=== PATIENT | female | born 1995 | race Caucasian/White ===

== ENCOUNTER 2019-11-29 19:20 | Emergency (ER) | payer OTHER, SELFPAY ==
[2019-11-29 19:44] VITALS: BP 123/89; PULSE 90; RESP 17; TEMP 36.7; O2SAT 100
--- NOTE | 2019-11-29 19:55 | ECG_ITS ---
Measurements Intervals [place] Rate: 71 P: 45 DC: 145 QRS: 59 QRSD: 92 T: 39 QT: 374 QTc: 408 SINUS RHYTHM LOW QRS VOLTAGE IN PRECORDIAL LEADS [QRS DEFLECTION < 1.0 mV IN CHEST LEADS] No previous ECG available for comparison Electronically Signed On 11-30-2019 8:55:59 CDT by Sho Rosado M.D. [email or web address]
--- NOTE | 2019-11-29 19:57 | W.ED.DIZZY ---
HPI - Dizziness General: Chief Complaint: Dizziness Stated Complaint: dizzy/shakey Time Seen by Provider: 11/29/19 19:44 History of Present Illness: HPI Narrative: Patient is a 24-year-old female who comes to the ED with anxiety and nausea. Patient states that symptoms started a couple hours ago. Patient states she has been working 16-hour days at her job and today she drink half of an energy drink and took a caffeine pill. Patient noticed the symptoms started about 30 to 40 minutes after she took her caffeine pill. She started getting a little dizzy, nauseous, anxious and shaky. She has had a couple episodes of emesis. Here in the ED she says her dizziness is gone away but she still feels nauseous and very anxious. She describes having shaky feeling in her hands and feet. Denies any fever, chest pain, shortness of breath, abdominal pain, headache, recent head trauma, numbness or weakness to extremities or any other neurological symptoms. Patient does state that she has had some burning and increased urine frequency over the past 2 days. Patient denies possibility of being . Associated symptoms: Reports nausea and vomiting; Denies chest pain, chills, headache(s), nasal congestion or palpitations Associated neuro symptoms: Deny numbness in extremities Review of Systems Const: Denies: fever, chills or fatigue Eyes: Denies: change in vision or eye discomfort ENMT: Denies: throat pain, painful swallowing, nasal discharge or nasal congestion Card: Denies: chest pain, palpitations, edema, swelling of feet/ankles, shortness of breath on exertion or shortness of breath when lying down Resp: Denies: shortness of breath, productive cough or non-productive cough GI: Reports: nausea and vomiting; Denies: abdominal pain, diarrhea, constipation or blood in stool : Reports: painful urination and urinary urgency; Denies: flank pain or blood in urine Musc: Denies: neck pain, back pain or extremity swelling Skin/Breast: Denies: rash or new lesion Neuro: Reports: dizziness (Resolved before arriving to ED); Denies: headache, numbness in extremities or weakness in extremities Psych: Reports: anxiety PFSH ED PFSH: Social History Smoking and tobacco status: never smoked Female Reproductive History: Date of last menstrual period: 11/29/19 Physical Exam Narrative: EXAM NARRATIVE: Patient is a 24-year-old female who is sitting on the exam bed when I enter the room. She appears little emotional and anxious during history and physical exam. She is showing no signs of acute pain or any acute respiratory distress. Const: COMMON NORMALS: oriented x3 and alert GENERAL APPEARANCE: cooperative and anxious HENMT: COMMON NORMALS: normocephalic HEAD & SCALP: normocephalic MOUTH: oral and palatal mucosa normal THROAT: posterior oropharynx normal and uvula midline Eye: COMMON NORMALS: PERRL, EOMs intact bilaterally and normal visual cazares by confrontation PUPIL: Yes PERRL Neck/C-Spine: COMMON NORMALS: supple GENERAL: Yes normal visual inspection Resp: COMMON NORMALS: normal respiratory effort, no retractions, no use of accessory muscles and clear to auscultation bilaterally AUSCULTATION: clear to auscultation bilaterally Cardio: COMMON NORMALS: regular rate, regular rhythm, S1 normal heart sound, S2 normal heart sound, no gallops, no clicks, no murmurs and peripheral pulses 2+ throughout RATE: regular rate RHYTHM: regular rhythm HEART SOUNDS: S1 normal and S2 normal PERIPHERAL PULSES: pulses 2+ throughout GI: COMMON NORMALS: normal to inspection, nondistended, normoactive bowel sounds, soft to palpation, non-tender and no masses PALPATION: Yes soft : COMMON NORMALS: Yes no CVA tenderness BLADDER/KIDNEY EXAM: Yes no CVA tenderness Back/Pelvis: COMMON NORMALS: no CVA tenderness Extremity: COMMON NORMALS: normal to inspection and normal capillary refill Neuro: COMMON NORMALS: oriented x3, CN's II-XII intact bilaterally, moves all extremities, no focal motor deficits and no sensory deficits noted SENSORIUM/ORIENTATION: Yes alert SENSORY EXAM: Yes extremities (intact) MOTOR EXAM: strength 5/5 throughout Skin: COMMON NORMALS: no rashes or lesions noted GENERAL SKIN EXAM: no rashes or lesions noted and dry skin Course Vital Signs: Vital signs: Vital Signs Temperature 98.1 F 11/29/19 19:44 Pulse Rate 72 11/29/19 21:57 Respiratory Rate 14 11/29/19 21:57 Blood Pressure 122/75 11/29/19 21:57 Pulse Oximetry 99 11/29/19 21:57 MDM - Dizziness MDM Narrative: Medical decision making narrative: Patient is a 24-year-old female who comes to the ED with anxiety, restlessness, shakes and nausea after taking an energy drink and a caffeine pill today. Patient also complaining of dysuria and frequency. EKG showed normal sinus rhythm. CBC and CMP were unremarkable. Urinalysis showed some bacteria, white blood cells and red blood cells. Patient was given IV fluids, zofran and hydroxyzine to help with anxiety. Patient symptoms improved while here in the ED. Patient was discharged and told to limit caffeine intake and to take full course of antibiotics as prescribed. Told her to follow-up with her PCP in 7 days for reevaluation. Patient understood and agrees with plan. Lab Data: Attestation: I reviewed the patient's lab results. Labs: Lab Results 11/29/19 11/29/19 11/29/19 Range/Units 20:01 20:01 20:01 WBC 8.1 (4.0-10.0) 10^3/ uL RBC 4.29 (4.1-5.3) 10^6/u L Hgb 13.4 (11.5-15.3) g/dL Hct 40.8 (37.0-47.0) % MCV 95.1 (81-99) fL MCH 31.2 (28.0-34.0) pg MCHC 32.8 (30.0-36.0) g/dL RDW 12.3 (12.1-15.1) % Plt Count 223 (130-400) 10^3/c mm MPV 11.2 H (7.4-10.4) fL Neut % (Auto) 68.9 % Lymph % (Auto) 23.5 % [place] % (Auto) 6.3 % Eos % (Auto) 0.5 % Baso % (Auto) 0.6 % Neut # (Auto) 5.6 (1.8-7.7) 10^3/u L Lymph # (Auto) 1.9 (0.8-4.8) 10^3/u L [place] # (Auto) 0.5 (0.2-0.9) 10^3/u L Eos # (Auto) 0.0 (0.0-0.8) 10^3/u L Baso # (Auto) 0.1 (0.0-0.1) 10^3/u L Nucleated RBC % (a uto) 0 % Nucleated RBCs # 0.0 /100WBC Sodium 139 (136-145) mmol/L Potassium 3.9 (3.5-5.1) mmol/L Chloride 102 (98-107) mmol/L Carbon Dioxide 23 (22-29) mmol/L Anion Gap 17.9 (5-19) BUN 12 (6-20) mg/dL Creatinine 0.8 (0.5-0.9) mg/dL GFR Calculation 89.7 L (90-130) mL/min Glucose 122 H (65-115) mg/dL Calculated Osmolal ity 285 (285-295) mOsm/k g Calcium 9.9 (8.5-10.5) mg/dL Total Bilirubin 0.5 (0.15-1.2) mg/dL AST 28 (0-32) U/L ALT 23 (0-33) U/L Alkaline Phosphata se 88 (35-105) IU/L Total Protein 8.2 (6.6-8.7) g/dL Albumin 4.6 (3.5-5.2) g/dL Globulin 3.6 (1.3-4.6) g/dL HCG, Qual Negative (Negative) Urine Color (Yellow) Urine Appearance (CLEAR) Urine pH (5-7) Ur Specific Gravit y (1.005-1.030) Urine Protein (Negative) Urine Glucose (UA) (Normal) Urine Ketones (Negative) Urine Blood (Negative) Urine Nitrate (Negative) Urine Bilirubin (NEGATIVE) Prot Sulfosalicyli c Acd (Negative) Urine Urobilinogen (Negative) mg/dL Ur Leukocyte Dot ase (Negative) Urine RBC (0-2) /hpf Urine WBC (0-5) /hpf Ur Squamous Epith Cells (0-5) Amorphous Sediment Urine Bacteria (NONE) Urine Mucus 11/29/19 Range/Units 21:10 WBC (4.0-10.0) 10^3/ uL RBC (4.1-5.3) 10^6/u L Hgb (11.5-15.3) g/dL Hct (37.0-47.0) % MCV (81-99) fL MCH (28.0-34.0) pg MCHC (30.0-36.0) g/dL RDW (12.1-15.1) % Plt Count (130-400) 10^3/c mm MPV (7.4-10.4) fL Neut % (Auto) % Lymph % (Auto) % [place] % (Auto) % Eos % (Auto) % Baso % (Auto) % Neut # (Auto) (1.8-7.7) 10^3/u L Lymph # (Auto) (0.8-4.8) 10^3/u L [place] # (Auto) (0.2-0.9) 10^3/u L Eos # (Auto) (0.0-0.8) 10^3/u L Baso # (Auto) (0.0-0.1) 10^3/u L Nucleated RBC % (a uto) % Nucleated RBCs # /100WBC Sodium (136-145) mmol/L Potassium (3.5-5.1) mmol/L Chloride (98-107) mmol/L Carbon Dioxide (22-29) mmol/L Anion Gap (5-19) BUN (6-20) mg/dL Creatinine (0.5-0.9) mg/dL GFR Calculation (90-130) mL/min Glucose (65-115) mg/dL Calculated Osmolal ity (285-295) mOsm/k g Calcium (8.5-10.5) mg/dL Total Bilirubin (0.15-1.2) mg/dL AST (0-32) U/L ALT (0-33) U/L Alkaline Phosphata se (35-105) IU/L Total Protein (6.6-8.7) g/dL Albumin (3.5-5.2) g/dL Globulin (1.3-4.6) g/dL HCG, Qual (Negative) Urine Color Yellow (Yellow) Urine Appearance Hazy A (CLEAR) Urine pH 8 H (5-7) Ur Specific Gravit y 1.010 (1.005-1.030) Urine Protein Neg (Negative) Urine Glucose (UA) Norm (Normal) Urine Ketones 1+ H (Negative) Urine Blood Neg (Negative) Urine Nitrate Negative (Negative) Urine Bilirubin Neg (NEGATIVE) Prot Sulfosalicyli c Acd Negative (Negative) Urine Urobilinogen Norm (Negative) mg/dL Ur Leukocyte Dot ase Trace H (Negative) Urine RBC 0-4 H (0-2) /hpf Urine WBC 5-10 H (0-5) /hpf Ur Squamous Epith Cells 0-4 H (0-5) Amorphous Sediment 1+ Urine Bacteria Trace (NONE) Urine Mucus Trace EKG Data^: EKG 1: Attestation: I personally reviewed and interpreted this EKG as follows: EKG interpretation date: 11/29/19 Computer generated interpretation: Normal sinus rhythm, 71 bpm, no ST segment elevation or depression seen, P waves present. Discharge Plan Discharge Patient Disposition: Home, Self-Care Clinical Impression: Caffeine intoxication Qualifiers: Complication of substance-induced condition: uncomplicated Qualified Code(s): F15.920 - Other stimulant use, unspecified with intoxication, uncomplicated UTI (urinary tract infection) Qualifiers: Urinary tract infection type: acute cystitis Hematuria presence: with hematuria Qualified Code(s): N30.01 - Acute cystitis with hematuria Condition: Stable Prescriptions: New Bactrim DS 800-160 mg tablet 1 tab PO BID 5 Days Qty: 10 RF: 0 Discharge Orders: Discharge Order (Routine); Ordered 11/29/19 Ordered By: Russ Robles Referrals: Andrew Orosco MD [Primary Care Provider] - Discharge Diet: Regular Discharge Activity: Resume usual activity Patient Instructions: Urinary Tract Infection in Women (ED), Caffeine Overdose Activity Restrictions/Additional Instructions: Follow-up with PCP in 7 to 10 days for reevaluation. Limit your daily caffeine intake and Tylenol at max energy drink and caffeine pills. Drink plenty fluids and stay hydrated. Take full course of antibiotics as prescribed. Discharge Date/Time: 11/29/19 22:00 Coding Level of Care Code ED Financial Professional for Chg Fwd Exam Comprehensive
[2019-11-29 20:05] LABS: Basophils # 0.1 10^3/uL (0.0-0.1); Basophils % 0.6 %; Eosinophils % 0.5 %; Hematocrit 40.8 % (37.0-47.0); Hemoglobin 13.4 g/dL (11.5-15.3); Lymphocytes # 1.9 10^3/uL (0.8-4.8); Lymphocytes % 23.5 %; Mean Corpuscular HGB Conc 32.8 g/dL (30.0-36.0); Mean Corpuscular Hemoglobin 31.2 pg (28.0-34.0); Mean Corpuscular Volume 95.1 fL (81-99); Mean Platelet Volume 11.2 fL (7.4-10.4); Monocytes # 0.5 10^3/uL (0.2-0.9); Monocytes % 6.3 %; Neutrophils # 5.6 10^3/uL (1.8-7.7); Neutrophils % 68.9 %; Nucleated Red Blood Cells % 0 %; Platelet Count 223 10^3/cmm (130-400); Red Blood Count 4.29 10^6/uL (4.1-5.3); Red Cell Distribution Width 12.3 % (12.1-15.1); White Blood Count 8.1 10^3/uL (4.0-10.0)
[2019-11-29] MEDS: sodium chloride 0.9% 1,000 ML 999 ML IV (20:10)
[2019-11-29] MEDS: ondansetron 2 mg/ML SDV 2 mL 4 MG IVP (20:15)
[2019-11-29 20:22] LABS: Alanine Aminotransferase 23 U/L (0-33); Albumin Level 4.6 g/dL (3.5-5.2); Alkaline Phosphatase 88 IU/L (35-105); Anion Gap 17.9 (5-19); Aspartate Amino Transferase 28 U/L (0-32); Blood Urea Nitrogen 12 mg/dL (6-20); Calcium 9.9 mg/dL (8.5-10.5); Carbon Dioxide 23 mmol/L (22-29); Chloride 102 mmol/L (98-107); Globulin 3.6 g/dL (1.3-4.6); Glomerular Filtration Rate 89.7 mL/min (90-130); Glucose 122 mg/dL (65-115); Osmolality Calculated 285 mOsm/kg (285-295); Potassium 3.9 mmol/L (3.5-5.1); Sodium 139 mmol/L (136-145); Total Bilirubin 0.5 mg/dL (0.15-1.2); Total Protein 8.2 g/dL (6.6-8.7)
[2019-11-29 20:30] LABS: HCG, Serum Qual Negative (Negative)
[2019-11-29] MEDS: hyDROXYzine 25 mg Capsule 50 MG PO (20:50)
[2019-11-29 21:28] LABS: Bilirubin Urine Neg (NEGATIVE); Blood Urine Neg (Negative); Glucose Urine UA Norm (Normal); Ketones Urine 1+ (Negative); Leukocyte Esterase Urine Trace (Negative); Nitrate Urine Negative (Negative); Protein Urine Neg (Negative); Urine Appearance Hazy (CLEAR); Urine Color Yellow (Yellow); Urobilinogen Urine Norm (Negative); pH Urine 8 (5-7)
[2019-11-29 21:29] LABS: Sulfosalicylic Acid Urine Negative (Negative)
[2019-11-29 21:30] LABS: Bacteria Urine TRACE; RBC Urine 0-4 /hpf (0-2); Squamous Epithelial Cell Urine 0-4 (0-5)
[2019-11-29 21:31] LABS: Add Urine Culture? No; Amorphous Sediment Urine 1+; Mucus Urine TRACE
[2019-11-29 21:57] VITALS: BP 122/75; PULSE 72; RESP 14; O2SAT 99
--- NOTE | 2019-11-29 22:09 | PC.NURSE ---
I agree with Khloe, Maint Mechanic assessment
== END 2019-11-29 22:00 | disposition home or self-care (01) ==
PROVIDERS: Emergency Provider Physician Assistant; Family Provider Family Medicine; PCP Family Medicine
DX: N30.01 Acute cystitis with hematuria (principal); F15.920 Other stimulant use, unspecified with intoxication, uncomplicated
CPT/HCPCS: 12345; 80053; 81001; 84703; 85025; 93005; 96361; 96374; 96375; 99283; 99284; A9270; J2405; J7030

== ENCOUNTER → 2020-03-03 11:30 | Outpatient (BNVA) | payer MEDICAID, SELFPAY | PROVIDERS: Family Provider Family Medicine; PCP Family Medicine; Visit Provider Emergency Medicine | DX: Z33.1 Pregnant state, incidental; R11.2 Nausea with vomiting, unspecified; R68.89 Other general symptoms and signs | CPT/HCPCS: 87400; 87635 ==

== ENCOUNTER 2023-07-09 17:54 | Emergency (ER) | payer OTHER, MEDICAID, SELFPAY ==
[2023-07-09 18:02] VITALS: BP 124/79; PULSE 82; RESP 18; TEMP 37.1; O2SAT 98; BMI 35.2
--- NOTE | 2023-07-09 18:20 | W.ED.EYEPROB ---
HPI - Eye Problem General: Chief complaint: Eye Problems Stated complaint: eye pain Time Seen by Provider: 07/09/23 18:06 History of Present Illness: 28-year-old female comes in today for complaints of left eye discomfort. Patient reported waking up this morning with itchy left eye that throughout the day has continued to be on comfortable and having increased pain. Patient does routinely wear clyde contacts. Patient also has had some yellowish discharge from the eye. Patient appears nontoxic. Patient appears in no acute distress. Associated symptoms: Denies fever(s) or neck pain Review of Systems General: Reports: 10 or more systems reviewed and unremarkable except in HPI and below Const: Denies: fever(s) Eyes: Reports: eye discomfort and eye discharge ENMT: Denies: throat pain Card: Denies: chest pain Resp: Denies: dyspnea GI: Denies: abdominal pain : Denies: difficulty voiding Musc: Denies: neck pain or back pain Skin/Breast: Denies: rash Neuro: Denies: numbness in extremities PFS ED PFSH: Medical History (Updated 07/09/23 @ 18:26 by RATNA Scott) IUP (intrauterine ), incidental Social History (Updated 03/03/20 @ 11:20 by Yolanda Lazcano LPN) Smoking and tobacco/nicotine status: never used tobacco/nicotine Alcohol intake: never Substance/Drug Use: never Current occupational status: employed Current gender identity: Female Physical Exam Const: COMMON NORMALS: alert HENMT: COMMON NORMALS: normocephalic HEAD & SCALP: normocephalic Eye: COMMON NORMALS: Equal, round and reactive pupils present VISUAL ACUITY: Yes acuity normal ALIGNMENT: Yes alignment normal PERIORBITAL: periorbital findings normal EYELID: eyelids normal CONJUNCTIVA: Yes conjunctival abnormal positive left conjunctival injection SCLERA: scleral abnormal Laterality of scleral abnormality: positive left scleral injection PUPIL: Yes Equal, round and reactive pupils present EOM: No EOM abnormal Neck/C-Spine: COMMON NORMALS: full ROM Resp: COMMON NORMALS: normal respiratory effort Cardio: COMMON NORMALS: regular rate RATE: regular rate Neuro: SENSORIUM/ORIENTATION: Yes alert Skin: COMMON NORMALS: turgor normal GENERAL SKIN EXAM: turgor normal Course Vital Signs: Vital signs: Vital Signs Temperature 98.8 F 07/09/23 18:02 Pulse Rate 82 07/09/23 18:02 Respiratory Rate 18 07/09/23 18:02 Blood Pressure 124/79 07/09/23 18:02 Pulse Oximetry 98 07/09/23 18:02 Oxygen Delivery Me thod Room Air 07/09/23 18:02 MDM - Eye Problem Medical Decision Making 28-year-old female comes in today with complaints of eye irritation and discharge. Patient does wear contacts routinely. On exam patient conjunctiva is injected, sclera is erythematous, no hemorrhages noted in the sclera, cornea appears unremarkable. Differential diagnosis includes not limited to corneal scratch, conjunctivitis, infection secondary to contact lens. Reviewed exam with patient recommended use of ciprofloxacin and prednisolone for treatment of contact related eye infection. Discussed need for follow-up with eye district manager primary care sales for persistent or worsening symptoms with next 2 to 3 days. Recommend going without contact lenses until eye infection has cleared. Recommend full course of antibiotic and steroid use over the next 7 days. No radiology studies performed this visit Discharge Plan Discharge Patient Disposition: Home Clinical Impression: Contact lens related conjunctivitis Condition: Stable Prescriptions: No Action albuterol sulfate [Ventolin HFA] 90 mcg/actuation HFA aerosol inhaler 1 - 2 puff inhalation Q6H PRN (Reason: shortness of breath or wheezing) Qty: 8.5 0RF amoxicillin-pot clavulanate 875-125 mg tablet 1 tab PO BID 5 Days Qty: 10 0RF Discharge Orders: Discharge ED (Routine); Ordered 07/09/23 Ordered By: Abel Logan Referrals: Andrew Orosco MD [Primary Care Provider] - Patient Instructions: Conjunctivitis (ED) Activity Restrictions/Additional Instructions: Do not wear contacts while using eyedrops. Use Ciprofloxacin eyedrops 1-2 drops to the affected eye every 2 hours while awake for the first 2 days, then use 1-2 drops to the affected eye every 4 hours while awake for the next 5 days. Use prednisolone eyedrops 1 to 2 drops 4 times a day while awake. Follow-up with eye district manager primary care sales in 3 to 4 days for persistent symptoms. Return to ED for new concerns. Coding Level of Care Code ED Public Health Sanitarian Technician for [place]
[2023-07-09] MEDS: ciprofloxacin 0.3% Op Soln 2.5 mL Btl 1 DROP EYE-LEFT (18:34)
[2023-07-09] MEDS: prednisoLONE 1% Op Susp 5 mL Btl 1 DROP EYE-LEFT (18:39)
== END 2023-07-09 18:50 | disposition home or self-care (01) ==
PROVIDERS: Emergency Provider Nurse Practitioner Family; PCP Family Medicine
DX: H10.89 Other conjunctivitis (principal)
CPT/HCPCS: 99283

== ENCOUNTER 2024-03-13 22:39 | Emergency (ER) | payer MEDICAID, SELFPAY ==
[2024-03-13 22:44] VITALS: BP 137/85; PULSE 105; RESP 16; TEMP 37; O2SAT 97
--- NOTE | 2024-03-13 22:51 | ED_ITS ---
HPI - URI/Sore Throat General: Chief Complaint: Upper Respiratory Infection Stated Complaint: Covid + Time Seen by Provider: 03/13/24 22:48 Source: patient Mode of arrival: ambulatory Limitations: no limitations History of Present Illness: Patient is a 28-year-old female presenting to the emergency department for COVID testing. 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 Reports associated body aches. No other symptoms reported at this time. MD elicited complaint: other (Body aches) Onset (ago): hour(s) Consistency: constant Context: sick contacts Associated symptoms: Deny abdominal pain, chills, chest pain, diarrhea, ear or mastoid pain, fever(s), headache(s), nausea or vomiting Review of Systems General: Reports: 10 or more systems reviewed and unremarkable except in HPI and below Const: Reports: body aches; Denies: fever(s), chills or fatigue Eyes: Denies: change in vision ENMT: Denies: throat pain, ear or mastoid pain or nasal discharge Card: Denies: chest pain, palpitations, swelling of feet/ankles or lightheadedness Resp: Denies: dyspnea, productive cough or wheezing GI: Denies: abdominal pain, nausea, vomiting, diarrhea or constipation : Denies: flank pain, difficulty voiding, dysuria or urinary frequency Musc: Denies: neck pain, back pain or joint pain Skin/Breast: Denies: rash Neuro: Denies: headache(s), numbness in extremities or weakness in extremities PFS ED PFSH: Medical History IUP (intrauterine ), incidental Social History Smoking and tobacco/nicotine status: never used tobacco/nicotine Alcohol intake: never Substance/Drug Use: never Current occupational status: employed Current gender identity: Female Physical Exam Const: COMMON NORMALS: no acute distress and no limitations GENERAL APPEARANCE: cooperative, comfortable and well developed ORIENTATION/CONSCIOUSNESS: Yes awake HENMT: COMMON NORMALS: normocephalic, atraumatic and hearing grossly normal bilaterally HEAD & SCALP: normocephalic and atraumatic Eye: COMMON NORMALS: Equal, round and reactive pupils present, EOMs intact bilaterally and conjunctivae normal CONJUNCTIVA: Yes conjunctivae normal PUPIL: Yes Equal, round and reactive pupils present Neck/C-Spine: COMMON NORMALS: full ROM, supple and no JVD Resp: COMMON NORMALS: normal respiratory effort, No retractions, No use of accessory muscles and clear to auscultation bilaterally AUSCULTATION: clear to auscultation bilaterally Cardio: COMMON NORMALS: no JVD, regular rate, regular rhythm, No clicks present (Cardio), No murmurs present (Cardio) and No rub (Cardio) RATE: regular rate RHYTHM: regular rhythm Extremity: COMMON NORMALS: normal to inspection, full ROM and capillary refill normal Skin: COMMON NORMALS: no rashes or lesions noted GENERAL SKIN EXAM: no rashes or lesions noted Course Vital Signs: Vital signs: Vital Signs Temperature 98.6 F 03/13/24 22:44 Pulse Rate 105 H 03/13/24 22:44 Respiratory Rate 16 03/13/24 22:44 Blood Pressure 137/85 03/13/24 22:44 Pulse Oximetry 97 03/13/24 22:44 Oxygen Delivery Me thod Room Air 03/13/24 22:44 MDM - URI/Sore Throat Medical Decision Making Patient tested positive for COVID. She will undergo quarantine precautions and treat symptomatically. Return precautions given. Patient discharged at this time. No radiology studies performed this visit Discharge Plan Discharge Patient Disposition: Home Clinical Impression: COVID Condition: Stable Prescriptions: No Action albuterol sulfate [Ventolin HFA] 90 mcg/actuation HFA aerosol inhaler 1 - 2 puff inhalation Q6H PRN (Reason: shortness of breath or wheezing) Qty: 8.5 0RF amoxicillin-pot clavulanate 875-125 mg tablet 1 tab PO BID 5 Days Qty: 10 0RF Discharge Orders: Discharge ED (Routine); Ordered 03/13/24 Ordered By: Yusuf Cortez Referrals: Andrew Orosco MD [Primary Care Provider] - Discharge Diet: Usual diet Discharge Activity: Increase activity as tolerated Patient Instructions: COVID-19 (Coronavirus Disease 2019) (ED) Activity Restrictions/Additional Instructions: Tylenol or ibuprofen for any body aches or fevers. Plenty of fluids. Contagion precaution. Follow-up with your primary care provider and return with any new or worsening symptoms. Coding Level of Care Code ED Classification Officer for [place]
[2024-03-13 23:01] VITALS: PULSE 87; RESP 16; O2SAT 99
[2024-03-13 23:12] LABS: SARS Covid-2 Antigen Positive (Negative)
== END 2024-03-13 23:02 | disposition home or self-care (01) ==
PROVIDERS: Emergency Provider Physician Assistant; PCP Family Medicine
DX: U07.1 COVID-19 (principal)
CPT/HCPCS: 87426; 99283

== ENCOUNTER 2025-02-05 09:18 | Emergency (ER) | payer SELFPAY ==
--- OUTSIDE RECORDS SUMMARY | 2025-02-05 09:23 | XMS_ITS | Clinical Summary ---
Author Organization [facility] Address [address] [place] [address] Care Team Providers Care Passenger Service Agent Name Role Phone Unavailable Primary Care Provider Unavailabl e Allergies No known active allergies Medications levonorgestreL (Mirena) 20 mcg/24 hours (6 yrs) 52 mg IUD Insert as directed 1 Intra Uterine Device 0 11/08/2020 Active Resolved Problems Problem Noted Date Diagnosed Date Resolved Date (normal spontaneous vaginal delivery) 09/12/2020 10/21/2020 Nuchal cord, delivered, curr ent hospitalization 09/12/2020 10/21/2020 Labor and delivery indicatio n for care or intervention 09/06/2020 10/21/2020 Supervision of other normal , antepartum 02/08/2020 10/21/2020 Threatened labor at term 07/2021 Immunizations Immunization Administration Dates Next Due (M-M-R II/PRIORIX)(12 MO UP) MEASLES, MUMPS AND RUBELLA VIRUS VACCINE, 0.5 ML IM/SUBCUT 10/10/1998 Dt Dtp Dtap Vaccine 10/10/1998, 8,1997,1997 HIB, Unspecified Formulation 10/10/1998, 01/05/1998,1997,1997 Hepatitis B Vaccine 01/05/1998,1997,1996 IPV/OPV 10/10/1998,1997,1997 Family History Medical History Relation Name Comments Diabetes Father Diabetes Paternal Grandmother Relation Name Status Comments Father Alive Maternal Grandfather Alive Maternal Grandmother Alive Mother Alive Paternal Grandfather Alive Paternal Grandmother Alive Social History Tobacco Use Types Packs/Day Years Used Date Smoking Tobacco: Never Smokeless Tobacco: Never Alcohol Use Standard Drinks/Week Comments No 0 (1 standard drink = 0.6 oz pur e alcohol) Comments Unknown Sex and Gender Information Value Date Recorded Sex Assigned at Not on file Legal Sex Female 4:26 PM JAVA SOFTWARE ARCHITECT Gender Identity Not on file Sexual Orientation Not on file Last Filed Vital Signs Vital Sign Reading Time Taken Comments Blood Pressure 112/68 11/08/2020 1:08 PM CDT Pulse 73 09/13/2020 3:45 PM JAVA SOFTWARE ARCHITECT Temperature 36.5 C (97.7 F) 09/13/2020 3:45 PM JAVA SOFTWARE ARCHITECT Respiratory Rate 16 09/13/2020 3:45 PM JAVA SOFTWARE ARCHITECT Oxygen Saturation - - Inhaled Oxygen Concentration - - Weight 84.8 kg (187 lb) 11/08/2020 1:08 PM CDT Height 162.6 cm (5' 4 ) 11/08/2020 1:08 PM CDT Body Mass Index 32.1 11/08/2020 1:08 PM CDT Plan of Treatment Health Maintenance Due Date Last Done Comments DTAP/TDAP/TD VACCINES (5 - Tdap) 2008 10/10/1998, 01/05/1998, 1997, Additional history exists HPV/Cotest (21-29) 2018 CERVICAL CANCER SCREENING 11/02/2023 PAP SMEAR 11/02/2023 11/01/2020 INFLUENZA VACCINE (#1) 2024 HEPATITIS B VACCINES Completed 01/05/1998, 1997, 1997 CHLAMYDIA SCREENING (ANNUAL) 11-24 YEARS Discontinued 11/08/2020, 11/01/2020 HPV VACCINES Aged Out No longer eligi ble based on patient's age to complete this topic Procedures Procedure Name Priority Date/Time Associated Diagnosis Comments GC/CHLAMYDIA, GENITAL Routine 11/08/2020 1:33 PM CDT CERV/VAG CYTO AGE BASED SCREEN PAP Routine 11/01/2020 3:53 PM CDT from Last 3 Months or Most Recently Relevant to Health Maintenance Results * GC/CHLAMYDIA, GENITAL (11/08/2020 1:33 PM CDT) CHLAMYDIA DNA AMPLIFICATION NOT DETECTED Not Detected 11/08/2020 7:16 PM CDT [facility] GC DNA AMPLIFICATION NOT DETECTED Not Detected 11/08/2020 7:16 PM CDT [facility] Genital SWAB OF ENDOCERVIX / Unknown Collection / Unknown 11/08/2020 1:33 PM CDT 11/08/2020 4:46 PM CDT Narrative [facility] - 11/08/2020 7:16 PM CDT Results should not be used for the evaluation of suspected sexual abuse or for other medico-legal indications. The only legally accepted results are from culture. Results cannot be used to assess therapeutic success or failure since nucleic acids may persist following antimicrobial therapy. Galina Escobar APRN- [employer] COM Final Result [facility] [address] [place] [address] [facility] CLIA# [id number] [address] [place] [address] * CERV/VAG CYTO AGE BASED SCREEN PAP (11/01/2020 3:53 PM CDT) [facility] COMMENT (PAP): SEE COMMENT 12:25 PM CDT [facility] Comment: This order for age-based cervical cancer and STI screening follows ACOG guidelines(PB 168, 140, AJG942). See individual assays for performing site location. CLINICAL INFORMATION Routine exam 11/04/2020 12:25 PM CDT [facility] LAST MENSTRUAL PERIOD INFORMATION NOT PROVIDED 11/04/2020 12:25 PM CDT [facility] PREV PAP: INFORMATION NOT PROVIDED 11/04/2020 12:25 PM CDT [facility] PREV BX: INFORMATION NOT PROVIDED 11/04/2020 12:25 PM CDT [facility] SOURCE Endocervix 11/04/2020 12:25 PM CDT [facility] ADEQUACY: SEE COMMENT 11/04/2020 12:25 PM CDT [facility] Comment: Satisfactory for evaluation. Endocervical/transformation zone component present. PAP INTERP Negative for intraepithelial lesion or malignancy. 11/04/2020 12:25 PM CDT [facility] COMMENT This Pap test has been evaluated with computer assisted technology. 11/04/2020 12:25 PM CDT [facility] JOINT YARNER: SEE COMMENT 2020 12:25 PM CDT [facility] Comment: MARY, CT(ASCP) CT screening location: [place] [address] [place] [address] EXPLANATORY NOTE SEE COMMENT 021 12:25 PM CDT [facility] Comment: EXPLANATORY NOTE: The Pap is a screening test for cervical cancer. It is not a diagnostic test and is subject to false negative and false positive results. It is most reliable when a satisfactory sample, regularly obtained, is submitted with relevant clinical findings and history, and when the Pap result is evaluated along with historic and current clinical information. Genital SWAB OF ENDOCERVIX / Unknown Collection / Unknown 11/01/2020 3:53 PM CDT 11/03/2020 9:06 AM CDT Narrative [facility] - 11/04/2020 12:25 PM CDT Performing Organization Information: Site ID: SL Name: [facility] Address: [facility] Administration [place] [address] Director: Eddie Rios Galina Escobar HUMIDIFIER ATTENDANT- PATHOLOGY/CYTOLOGY ORD ERABLES Final Result [facility] from Last 3 Months or Most Recently Relevant to Health Maintenance Insurance * Guarantor: SRAVANTHI PURI Account Type Relation to Patient Date of Phone Billing Address Personal/Family [address] [place] [address] [facility]
--- OUTSIDE RECORDS SUMMARY | 2025-02-05 09:23 | XMS_ITS | Clinical Summary ---
Author Organization [facility] Address [address] [place] [address] Care Team Providers Care Education Rn Name Role Phone Unavailable Primary Care Provider Unavailabl e Allergies No known active allergies Medications levonorgestreL (Mirena) 20 mcg/24 hours (6 yrs) 52 mg IUD Insert as directed 1 Intra Uterine Device 11/08/2020 Active Active Problems No known active problems Resolved Problems Problem Noted Date Diagnosed Date [...] = 0.6 oz pur e alcohol) Comments No Sex and Gender Information Value Date Recorded Sex Assigned at Not on file Legal Sex Female 3:09 AM SWING GRINDER Gender Identity Not on file Sexual Orientation Not on file Last Filed Vital Signs Vital Sign Reading Time Taken Comments Blood Pressure 112/68 11/08/2020 1:08 PM CDT Pulse 73 09/13/2020 3:45 PM SWING GRINDER Temperature 36.5 C (97.7 F) 09/13/2020 3:45 PM SWING GRINDER Respiratory Rate 16 09/13/2020 3:45 PM SWING GRINDER Oxygen Saturation 97% 09/13/2020 3:45 PM SWING GRINDER Inhaled Oxygen Concentration - - Weight 84.8 [...] GC/CHLAMYDIA, GENITAL Routine 11/08/2020 1:33 PM CDT Encounter for IUD insertion CERV/VAG CYTO AGE BASED SCREEN PAP Routine 11/01/2020 3:53 PM CDT Screening for cervical cancer from Last 3 Months or Most Recently Relevant to Health Maintenance Results * GC/CHLAMYDIA, GENITAL (11/08/2020 1:33 PM CDT) [facility] CHLAMYDIA DNA AMPLIFICATION NOT DETECTED Not Detected 11/08/2020 7:16 PM CDT [facility] GC DNA AMPLIFICATION NOT DETECTED Not Detected 11/08/2020 7:16 PM CDT [facility] Genital SWAB OF ENDOCERVIX / Unknown Collection / Unknown 11/08/2020 1:33 PM CDT 11/08/2020 2:37 PM CDT Narrative [facility] - 11/08/2020 7:16 PM CDT Results should not be used for the evaluation of suspected sexual abuse or for other medico-legal indications. The only legally accepted results are from culture. Results cannot be used to assess therapeutic success or failure since nucleic acids may persist following antimicrobial therapy. Galina Escobar COMPLEX CASE MANAGER- [employer] GEN ORDERABLES COM Final Result [facility] [address] [place] [address] * CERV/VAG CYTO AGE BASED SCREEN PAP (11/01/2020 3:53 PM CDT) [facility] COMMENT (PAP): SEE COMMENT 12:25 PM CDT [facility] Comment: This order for age-based cervical cancer and STI screening follows ACOG guidelines(PB 168, 140, INW010). See individual assays for performing site location. CLINICAL INFORMATION Routine exam 11/04/2020 12:25 PM CDT [facility] LAST MENSTRUAL PERIOD INFORMATION NOT PROVIDED 11/04/2020 12:25 PM CDT [facility] PREV PAP: INFORMATION NOT PROVIDED 11/04/2020 12:25 PM CDT [facility] PREV BX: INFORMATION NOT PROVIDED 11/04/2020 12:25 PM CDT [facility] SOURCE Endocervix 11/04/2020 12:25 PM CDT [facility] ADEQUACY: SEE COMMENT 11/04/2020 12:25 PM CDT [facility] Comment: Satisfactory for evaluation. Endocervical/transformation zone component present. PAP INTERP Negative for intraepithelial lesion or malignancy. 11/04/2020 12:25 PM CDT [facility] COMMENT This Pap test has been evaluated with computer assisted technology. 11/04/2020 12:25 PM CDT [facility] CAP PARTS CUTTER: SEE COMMENT 2020 12:25 PM CDT [facility] Comment: MDG, CT(ASCP) CT screening location: [place] [address] [place] [address] EXPLANATORY NOTE SEE COMMENT 021 12:25 PM CDT [facility] Comment: EXPLANATORY NOTE: The Pap is a [...] Collection / Unknown 11/01/2020 3:53 PM CDT 11/02/2020 10:52 AM CDT Narrative [facility] - 11/04/2020 12:25 PM CDT Performing Organization Information: Site ID: Name: [facility] Address: [facility] [place] [address] Director: Edide Rios [facility] Siva Escobar COMPLEX CASE MANAGER- PATHOLOGY/CYTOLOGY ORD ERABLES Final Result [facility] from Last 3 Months or Most Recently Relevant to Health Maintenance Insurance [facility] Member Subscriber Plan / Payer (Ef fective 2020-Present) Name:Sravanthi Puri Relation to Subscriber:Self Name:Sravanthi Puri Payer ID:[id number] (NAIC) Group ID:[id number] Type:Medicaid Managed Care Address: [address] [address] RX [facility] [employer] Advance Directives For more information, please contact: [phone] * Full Code (Latest Code Status on File) Date Activated Date Inactivated Comments 09/12/2020 1:41 PM 09/13/2020 8:05 PM * Full Code Date Activated Date Inactivated Comments 09/12/2020 6:56 AM 09/12/2020 1:40 PM * Full Code Date Activated Date Inactivated Comments 09/12/2020 6:44 AM 09/12/2020 6:56 AM * Full Code Date Activated Date Inactivated Comments 09/11/2020 11:09 PM 09/12/2020 3:53 AM * Full Code Date Activated Date Inactivated Comments 09/09/2020 9:18 PM 09/09/2020 10:11 PM
[2025-02-05 09:29] VITALS: BP 129/81; PULSE 87; RESP 16; TEMP 36.7; O2SAT 100; BMI 37.2
[2025-02-05 10:57] LABS: Bilirubin Urine Negative (Negative); Blood Urine Negative (Negative); Glucose Urine UA Negative (Normal); Ketones Urine Negative (Negative); Leukocyte Esterase Urine Negative (Negative); Nitrate Urine Negative (Negative); Protein Urine Negative (Negative); Specific Gravity, Urine 1.011 (1.005-1.030); Urine Appearance Clear (CLEAR); Urine Color Yellow (Yellow)
[2025-02-05 11:00] LABS: Add Urine Microscopic? YES; Bacteria Urine 1+ /hpf; RBC Urine 0-2 /hpf (0-2)
[2025-02-05 11:09] LABS: Basophils % 0.6 %; Eosinophils # 0.1 10^3/uL (0.0-0.8); Eosinophils % 1.6 %; Hematocrit 46.2 % (36-47); Lymphocytes # 0.7 10^3/uL (0.8-4.8); Lymphocytes % 11.3 %; Mean Corpuscular HGB Conc 32.9 g/dL (30-55); Mean Corpuscular Hemoglobin 30.7 pg (27-33); Mean Corpuscular Volume 93.3 fl (85-98); Mean Platelet Volume 10.9 fL (7.4-10.4); Monocytes # 0.5 10^3/uL (0.2-0.9); Monocytes % 7.7 %; Neutrophils # 4.89 10^3/uL (1.8-7.7); Neutrophils % 78.6 %; Nucleated Red Blood Cells % 0 %; Platelet Count 207 10^3/cmm (157-399); Red Blood Count 4.95 10^6/uL (3.85-5.65); Red Cell Distribution Width 11.9 % (12.1-15.1); White Blood Count 6.22 10^3/uL (3.29-11.43)
[2025-02-05 11:11] VITALS: BP 109/83; PULSE 82; RESP 16; O2SAT 99
[2025-02-05 11:28] LABS: Alanine Aminotransferase 22 U/L (0-33); Albumin Level 4.5 g/dL (3.5-5.2); Alkaline Phosphatase 92 U/L (35-105); Anion Gap 16.1 (5-19); Aspartate Amino Transferase 21 U/L (0-32); Blood Urea Nitrogen 8 mg/dL (6-20); Calcium 9.8 mg/dL (8.5-10.5); Carbon Dioxide 25 mmol/L (22-29); Chloride 100 mmol/L (98-107); Globulin 4.5 g/dL (1.3-4.6); Glucose 92 mg/dL (65-115); Lipase 23 U/L (13-60); Osmolality Calculated 282 mOsm/kg (285-295); Potassium 4.1 mmol/L (3.5-5.1); Sodium 137 mmol/L (136-145); Total Bilirubin 0.7 mg/dL (0.15-1.2)
[2025-02-05 11:30] VITALS: BP 131/89; PULSE 93; RESP 16; O2SAT 98
[2025-02-05 11:32] LABS: HCG, Serum Qual Negative (Negative)
--- NOTE | 2025-02-05 11:33 | W.ED.ABDPA2 ---
HPI - Abdominal Pain General: Chief Complaint: Abdominal Pain Stated Complaint: abd pain Time Seen by Provider: 02/05/25 10:56 Source: patient Mode of arrival: ambulatory Limitations: no limitations History of Present Illness: Patient is a nice 29-year-old female who presents to the ED with worsening epigastric abdominal pain. She states she has had intermittent abdominal pain and nausea for approximately a year but over the past week and a half she states she has been having more intermittent abdominal pain and nausea. She describes the pain as a burning and cramping sensation that travels from her epigastric down to her suprapubic area. She does not report the pain being related to when she eats. She takes omeprazole, famotidine, and zofran, all which she reports have not been helping. She denies fevers, vomiting, dysuria, hematuria, chest pain, shortness of breath, and has been having normal bowel movements. She has no other significant medical history. She had mentioned she wanted tested for alpha gal, but does not recall ever getting bitten by a tick or having any intolerance to pork or red meat. She does not see any specialists for this ongoing problem. MD elicited complaint: abdominal pain Pertinent past history: none Onset (ago): month(s) Pain Consistency: intermittent Location: Epigastric Severity: mild Quality: cramping and burning Exacerbating factors: nothing Relieving factors: nothing Associated Symptoms: Reports GI cramping, heartburn and nausea; Denies change in bowel habits, chills, constipation, diarrhea, dysuria, fever(s), hematemesis, syncope and vomiting Treatments prior to arrival: antacids Related Data Date of Last Menstrual Period: 01/16/25 Previous Rx's ?Medication ?Instructions ?Recorded albuterol sulfate 90 mcg/actuation 1 - 2 puff inhalation Q6H PRN 11/01/22 aerosol inhaler (Ventolin HFA) shortness of breath or wheezing #8.5 grams famotidine 20 mg tablet (Acid 20 mg PO BID 6 weeks #84 tabs 02/04/25 Bulb Assembler (famotidine)) ondansetron HCl 8 mg tablet 8 mg PO Q8H PRN nausea and/or 02/04/25 vomiting #30 tabs Allergies Allergy/AdvReac Type Severity Reaction Status Date / Time diphenhydramine Allergy ADR-Dizzine Verified 02/05/25 09:32 ss Review of Systems Const: Denies: fever(s), chills, body aches or change in appetite Eyes: Denies: change in vision or blurry vision ENMT: Denies: throat pain, odynophagia or swelling of lips/tongue Card: Denies: chest pain, palpitations, lightheadedness or syncope Resp: Denies: dyspnea, productive cough, pain on inspiration or chest congestion GI: Reports: abdominal pain (epigastric), nausea, heartburn and GI cramping; Denies: vomiting, hematemesis, dysphagia, diarrhea, constipation or change in bowel habits : Denies: flank pain, difficulty voiding, dysuria, urinary frequency, urinary urgency or urinary hesitancy Musc: Denies: neck pain, back pain (chronic back pain) or extremity pain Skin/Breast: Denies: rash or pruritus Neuro: Denies: headache(s) or dizziness PFSH ED PFSH: Medical History IUP (intrauterine ), incidental Social History Smoking and tobacco/nicotine status: never used tobacco/nicotine Alcohol intake: never Substance/Drug Use: never Current occupational status: employed Current gender identity: Female Female Reproductive History: Date of last menstrual period: 01/16/25 Physical Exam Const: COMMON NORMALS: no acute distress, average body habitus, patient oriented x3, no limitations, alert and well nourished GENERAL APPEARANCE: cooperative ORIENTATION/CONSCIOUSNESS: Yes awake, Yes oriented to person, Yes oriented to place and Yes oriented to time HENMT: COMMON NORMALS: normocephalic and atraumatic HEAD & SCALP: normocephalic and atraumatic Resp: COMMON NORMALS: normal respiratory effort and clear to auscultation bilaterally AUSCULTATION: clear to auscultation bilaterally Cardio: COMMON NORMALS: regular rate and regular rhythm RATE: regular rate RHYTHM: regular rhythm GI: COMMON NORMALS: Normal to inspection, nondistended, normoactive bowel sounds present, Soft to palpation, No hepatosplenomegaly present and no masses PALPATION: Yes Soft to palpation, Yes Tenderness to palpation present (GI) (mild tenderness epigastric region; non surgical examination) Details: LUQ, No Guarding due to palpation present (GI), No Rigid due to palpation and Yes No hepatosplenomegaly present : COMMON NORMALS: Yes no CVA tenderness BLADDER/KIDNEY EXAM: Yes no CVA tenderness Back/Pelvis: COMMON NORMALS: no CVA tenderness Neuro: COMMON NORMALS: patient oriented x3 SENSORIUM/ORIENTATION: Yes alert, Yes oriented to person, Yes oriented to place and Yes oriented to time Skin: COMMON NORMALS: no rashes or lesions noted GENERAL SKIN EXAM: no rashes or lesions noted Course Vital Signs: Vital signs: Vital Signs Temperature 98.0 F 02/05/25 09:29 Pulse Rate 88 02/05/25 12:34 Respiratory Rate 16 02/05/25 12:34 Blood Pressure 114/70 02/05/25 12:34 Pulse Oximetry 99 02/05/25 12:34 Oxygen Delivery Me thod Room Air 02/05/25 09:29 MDM - Abdominal Pain Medical Decision Making Patient clinically appears in no acute distress. Vital signs are stable. Blood work overall is unremarkable. She has a normal white count. LFTs are normal. Lipase is normal. UA is clear. At this time I do not have any suspicion for emergent or life-threatening etiology for her discomfort. Patient has been having symptoms for several months-even up to a year. Will have her follow-up with general surgery for a start. She may require GI at some point. Medical Records I reviewed the patient's medical records. Lab Data I reviewed the patient's lab results. 02/05/25 11:02 02/05/25 11:02 Labs/Radiology: Laboratory Results WBC 6.22 10^3/uL (3.29-11.43) 02/05/25 11:02 RBC 4.95 10^6/uL (3.85-5.65) 02/05/25 11:02 Hgb 15.20 g/dL (11.27-16.99) 02/05/25 11:02 Hct 46.2 % (36-47) 02/05/25 11:02 MCV 93.3 fl (85-98) 02/05/25 11:02 MCH 30.7 pg (27-33) 02/05/25 11:02 MCHC 32.9 g/dL (30-55) 02/05/25 11:02 RDW 11.9 % (12.1-15.1) L 02/05/25 11:02 Plt Count 207 10^3/cmm (157-399) 02/05/25 11:02 MPV 10.9 fL (7.4-10.4) H 02/05/25 11:02 Neut % (Auto) 78.6 % 02/05/25 11:02 Lymph % (Auto) 11.3 % 02/05/25 11:02 [place] % (Auto) 7.7 % 02/05/25 11:02 Eos % (Auto) 1.6 % 02/05/25 11:02 Baso % (Auto) 0.6 % 02/05/25 11:02 Neut # (Auto) 4.89 10^3/uL (1.8-7.7) 02/05/25 11:02 Lymph # (Auto) 0.7 10^3/uL (0.8-4.8) L 02/05/25 11:02 [place] # (Auto) 0.5 10^3/uL (0.2-0.9) 02/05/25 11:02 Eos # (Auto) 0.1 10^3/uL (0.0-0.8) 02/05/25 11:02 Baso # (Auto) 0.0 10^3/uL (0.0-0.1) 02/05/25 11:02 Nucleated RBC % (auto) 0 % 02/05/25 11:02 Nucleated RBCs # 0.0 /100WBC 02/05/25 11:02 Sodium 137 mmol/L (136-145) 02/05/25 11:02 Potassium 4.1 mmol/L (3.5-5.1) 02/05/25 11:02 Chloride 100 mmol/L (98-107) 02/05/25 11:02 Carbon Dioxide 25 mmol/L (22-29) 02/05/25 11:02 Anion Gap 16.1 (5-19) 02/05/25 11:02 BUN 8 mg/dL (6-20) 02/05/25 11:02 Creatinine 0.8 mg/dL (0.5-0.9) 02/05/25 11:02 GFR Calculation 86.0 mL/min (90-130) L 02/05/25 11:02 Glucose 92 mg/dL (65-115) 02/05/25 11:02 Calculated Osmolality 282 mOsm/kg (285-295) L 02/05/25 11:02 Calcium 9.8 mg/dL (8.5-10.5) 02/05/25 11:02 Total Bilirubin 0.7 mg/dL (0.15-1.2) 02/05/25 11:02 AST 21 U/L (0-32) 02/05/25 11:02 ALT 22 U/L (0-33) 02/05/25 11:02 Alkaline Phosphatase 92 U/L (35-105) 02/05/25 11:02 Total Protein 9.0 g/dL (6.6-8.7) H 02/05/25 11:02 Albumin 4.5 g/dL (3.5-5.2) 02/05/25 11:02 Globulin 4.5 g/dL (1.3-4.6) 02/05/25 11:02 Lipase 23 U/L (13-60) 02/05/25 11:02 HCG, Qual Negative (Negative) 02/05/25 11:02 Urine Color Yellow (Yellow) 02/05/25 09:55 Urine Appearance Clear (CLEAR) 02/05/25 09:55 Urine pH 8.0 (5-7) A 02/05/25 09:55 Ur Specific [place] 1.011 (1.005-1.030) 02/05/25 09:55 Urine Protein Negative (Negative) 02/05/25 09:55 Urine Glucose (UA) Negative (Normal) 02/05/25 09:55 Urine Ketones Negative (Negative) 02/05/25 09:55 Urine Blood Negative (Negative) 02/05/25 09:55 Urine Nitrate Negative (Negative) 02/05/25 09:55 Urine Bilirubin Negative (Negative) 02/05/25 09:55 Urine Urobilinogen 1.0 mg/dL (Negative) 02/05/25 09:55 Ur Leukocyte Esterase Negative (Negative) 02/05/25 09:55 Urine RBC 0-2 /hpf (0-2) 02/05/25 09:55 Urine WBC 6-10 /hpf (0-5) 02/05/25 09:55 Ur Squamous Epith Cells 6-10 /hpf (0-5) 02/05/25 09:55 Amorphous Sediment Not Reportable 02/05/25 09:55 Urine Bacteria 1+ /hpf (NONE) H 02/05/25 09:55 Hyaline Casts 0.40 /lpf 02/05/25 09:55 No radiology studies performed this visit Discharge Plan Discharge Patient Disposition: Home Clinical Impression: Epigastric pain Condition: Stable Prescriptions: No Action albuterol sulfate [Ventolin HFA] 90 mcg/actuation HFA aerosol inhaler 1 - 2 puff inhalation Q6H PRN (Reason: shortness of breath or wheezing) Qty: 8.5 0RF famotidine [Acid Bulb Assembler (famotidine)] 20 mg tablet 20 mg PO BID 42 Days Qty: 84 0RF ondansetron HCl 8 mg tablet 8 mg PO Q8H PRN (Reason: nausea and/or vomiting) Qty: 30 1RF Discharge Orders: Discharge ED (Routine); Ordered 02/05/25 Ordered By: Cristiana Balderas Referrals: Andrew Orosco MD [Primary Care Provider, Family Practice] Patient Instructions: Abdominal Pain (ED), Patient Portal & [place] Instructions Activity Restrictions/Additional Instructions: As we discussed, I would like you to follow-up with your primary care provider. Will place GI referral for [place] as requested. You may return to the emergency department at anytime for any further concerns you may have. Print Language: Amharic Coding Level of Care Code ED Manager Quality Systems for [place]
[2025-02-05 12:00] VITALS: BP 122/81; PULSE 88; RESP 16; O2SAT 100
[2025-02-05 12:34] VITALS: BP 114/70; PULSE 88; RESP 16; O2SAT 99
--- NOTE | 2025-02-08 08:41 | DCPLANNER ---
faxed referral packet to [facility] [phone]
== END 2025-02-05 12:41 | disposition home or self-care (01) ==
PROVIDERS: Emergency Provider Physician Assistant; PCP Family Medicine
DX: R10.13 Epigastric pain (principal)
CPT/HCPCS: 36415; 80053; 81001; 83690; 84703; 85025; 99283

== ENCOUNTER 2025-04-08 13:28 | Emergency (ER) | payer SELFPAY ==
[2025-04-08 13:29] VITALS: BP 119/79; PULSE 107; RESP 22; TEMP 36.6; O2SAT 100; BMI 41.1
--- OUTSIDE RECORDS SUMMARY | 2025-04-08 13:35 | XMS_ITS | Clinical Summary ---
Author Organization [facility] Address [address] [place] [address] Care Team Providers Care Rabbit Fancier Name Role Phone Unavailable Primary Care Provider [...] on file Legal Sex Female 4:26 PM STEEL PAN FORM PLACING SUPERVISOR Gender Identity Not on file Sexual Orientation Not on file Last Filed Vital Signs Vital Sign Reading Time Taken Comments Blood Pressure 112/68 11/08/2020 1:08 PM CDT Pulse 73 09/13/2020 3:45 PM STEEL PAN FORM PLACING SUPERVISOR Temperature 36.5 C (97.7 F) 09/13/2020 3:45 PM STEEL PAN FORM PLACING SUPERVISOR Respiratory Rate 16 09/13/2020 3:45 PM STEEL PAN FORM PLACING SUPERVISOR Oxygen Saturation - - Inhaled Oxygen Concentration [...] CANCER SCREENING 11/02/2023 PAP SMEAR 11/02/2023 11/01/2020 HPV VACCINES (1 - 3-dose SCD M series) 2024 INFLUENZA VACCINE (#1) 2025 HEPATITIS B VACCINES Completed 01/05/1998, 1997, 1997 CHLAMYDIA SCREENING (ANNUAL) 11-24 YEARS Discontinued 11/08/2020, 11/01/2020 Procedures Procedure Name Priority Date/Time Associated Diagnosis Comments GC/CHLAMYDIA, GENITAL Routine 11/08/2020 1:33 PM CDT CERV/VAG CYTO AGE BASED SCREEN PAP Routine 11/01/2020 3:53 PM CDT from Last 3 Months or Most Recently Relevant to Health Maintenance Results * GC/CHLAMYDIA, GENITAL (11/08/2020 1:33 PM CDT) CHLAMYDIA DNA AMPLIFICATION NOT DETECTED Not Detected 11/08/2020 7:[address] [facility] GC DNA AMPLIFICATION NOT DETECTED Not Detected 11/08/2020 7:[address] [facility] Genital SWAB OF ENDOCERVIX / Unknown Collection / Unknown 11/08/2020 1:33 PM CDT 11/08/2020 4:[address] [facility] - 11/08/2020 7:16 PM CDT Results should not be used for the evaluation of suspected sexual abuse or for other medico-legal indications. The only legally accepted results are from culture. Results cannot be used to assess therapeutic success or failure since nucleic acids may persist following antimicrobial therapy. Galina Escobar APRN- Ornicept COM Final Result [facility] [address] [place] [address] [facility] CLIA# [id number] [address] [place] [id number] * CERV/VAG CYTO AGE BASED SCREEN PAP (11/01/2020 3:53 PM CDT) [facility] COMMENT (PAP): SEE COMMENT 12:25 PM CDT [facility] Comment: This order for age-based cervical cancer and STI screening follows ACOG guidelines(PB 168, 140, MVC385). See individual assays for performing site location. [...] 12:25 PM CDT [facility] SEWING MACHINE MAINTENANCE MECHANIC: SEE COMMENT 2020 12:25 PM CDT [facility] Comment: M[place], CT(ASCP) CT screening location: [place] [address] [address] [place] [address] EXPLANATORY NOTE SEE COMMENT 12:25 PM CDT [facility] [...] Performing Organization Information: Site ID: [id number] Name: [facility] Address: [facility] [place] [address] Director: Eddie Rios Galina Escobar DRYWALL FINISHER FOREMAN- PATHOLOGY/CYTOLOGY ORD ERABLES Final Result [facility] from Last 3 Months or Most Recently Relevant to Health Maintenance Insurance * Guarantor: SRAVANTHI PURI Account Type Relation to Patient Date of Phone Billing Address Personal/Family [address] [place] [address] RX [facility]
--- OUTSIDE RECORDS SUMMARY | 2025-04-08 13:35 | XMS_ITS | Clinical Summary ---
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 Gender Identity Not on file Sexual Orientation Not on file Last Filed Vital Signs Vital Sign Reading Time Taken Comments Blood Pressure 112/68 11/08/2020 1:08 PM CDT Pulse 73 09/13/2020 3:45 PM ENAMEL DRIER Temperature 36.5 C (97.7 F) 09/13/2020 3:45 PM ENAMEL DRIER Respiratory Rate 16 09/13/2020 3:45 PM ENAMEL DRIER Oxygen Saturation 97% 09/13/2020 3:45 PM ENAMEL DRIER Inhaled Oxygen Concentration - - Weight 84.8 [...] GC/CHLAMYDIA, GENITAL (11/08/2020 1:33 PM CDT) [facility] CHLAMYDIA DNA AMPLIFICATION NOT DETECTED Not Detected 11/08/2020 7:16 PM CDT [facility] GC DNA AMPLIFICATION NOT DETECTED Not Detected 11/08/2020 7:16 PM CDT [facility] Genital SWAB OF ENDOCERVIX / Unknown Collection / Unknown 11/08/2020 1:33 PM CDT 11/08/2020 2:37 PM CDT Narrative [facility] - 11/08/2020 7:16 PM CDT Results should not be used for the evaluation of suspected sexual abuse or for other medico-legal indications. The only legally accepted results are from culture. Results cannot be used to assess therapeutic success or failure since nucleic acids may persist following antimicrobial therapy. Galina Escobar LABOR AND DELIVERY NURSE- MICRO [employer] GEN ORDERABLES COM Final Result [facility] [address] [place] [address] * CERV/VAG CYTO AGE BASED SCREEN PAP (11/01/2020 3:53 PM CDT) [facility] COMMENT (PAP): SEE COMMENT 12:25 PM CDT [facility] Comment: This order for age-based cervical cancer and STI screening follows ACOG guidelines(PB 168, 140, [id number]). See individual assays for performing site location. [...] 12:25 PM CDT [facility] HAMPER MAKER: SEE COMMENT 2020 12:25 PM CDT [facility] Comment: MARY, CT(ASCP) CT screening location: [place] [address] [address] [place] [address] EXPLANATORY NOTE SEE COMMENT 021 12:25 PM [...] PM CDT 11/02/2020 10:52 AM CDT Narrative [facility] - 11/04/2020 12:25 PM CDT Performing Organization Information: Site ID: Name: [facility] Address: [facility] [place] [address] Director: Eddie Rios [facility] Siva Escobar LABOR AND DELIVERY NURSE- PATHOLOGY/CYTOLOGY ORD ERABLES Final Result [facility] from Last 3 Months or Most Recently Relevant to Health Maintenance Insurance [facility] PLAN [facility] RX [facility] [employer] Advance Directives For more information, please contact: [phone] * Full Code (Latest Code Status on [...]
--- NOTE | 2025-04-08 14:11 | ED_ITS ---
HPI - URI/Sore Throat 2 General: Chief Complaint: Upper Respiratory Infection Stated Complaint: Dizzy Feels dehydrated Possible covid/Strep Time Seen by Provider: 04/08/25 14:01 History of Present Illness: This is a healthy 29-year-old female who presents the emergency room with throat pain. She says she developed a sore throat overnight. She has had nausea and vomiting. Subjective fevers. She is tachycardic on presentation. She says she feels dehydrated. 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 She had shaking and chills. Said her vision was blurred and both of her ears hurt. On exam she does have a very erythematous oropharynx. 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 Skin symptoms: Negative except as documented in HPI. Eye symptoms: Negative except as documented in HPI. ENMT symptoms: Negative except as documented in HPI. Respiratory symptoms: Negative except as documented in HPI. Cardiovascular symptoms: Negative except as documented in HPI. Gastrointestinal symptoms: Negative except as documented in HPI. Genitourinary symptoms: Negative except as documented in HPI. Musculoskeletal symptoms: Negative except as documented in HPI. Neurologic symptoms: Negative except as documented in HPI. Psychiatric symptoms: Negative except as documented in HPI. Endocrine symptoms: Negative except as documented in HPI. PFS ED 2 PFS: Medical History (Updated 04/08/25 @ 15:02 by Geni Morales MD) IUP (intrauterine ), incidental Social History Smoking and tobacco/nicotine status: never used tobacco/nicotine Alcohol intake: never Substance/Drug Use: never Current occupational status: employed Current gender identity: Female Physical Exam 2 Narrative: EXAM NARRATIVE: General: Alert, no acute distress. Skin: Warm, dry. Head: Normocephalic, atraumatic. Neck: Supple, trachea midline. Eye: Extraocular movements are intact. Ears, nose, mouth and throat: Very erythematous oropharynx. Appears to have history of tonsillectomy. Tacky oral mucosa Cardiovascular: Regular, mildly tachycardic. Normal peripheral perfusion. Respiratory: Lungs are clear to auscultation, respirations are non-labored, breath sounds are equal, Symmetrical chest wall expansion. Gastrointestinal: Soft, Nontender, Non distended Musculoskeletal: Normal ROM, no deformity. Neurological: Alert and oriented, No focal neurological deficit observed. Psychiatric: Cooperative, appropriate mood & affect. Course 2 Vital Signs: Vital signs: Vital Signs Temperature 97.8 F 04/08/25 13:29 Pulse Rate 107 H 04/08/25 13:29 Respiratory Rate 22 H 04/08/25 13:29 Blood Pressure 119/79 04/08/25 13:29 Pulse Oximetry 100 04/08/25 13:29 Oxygen Delivery Me thod Room Air 04/08/25 13:29 MDM - URI/Sore Throat Medical Decision Making Medical decision making: Differential diagnosis including but not limited to and based on the above HPI, review of systems and physical exam: Patient with sore throat likely has strep versus a viral illness versus mono. Basic lab work being obtained and a Monospot. Would have some concern for dehydration. Orders placed to evaluate differential diagnosis based on the above differential, HPI and physical exam Lab Review: Laboratory results were reviewed and interpreted by myself the emergency room physician. No leukocytosis. No anemia. No renal failure. Flu COVID RSV strep and mono are all negative I reviewed the patient's medical record. Reexamination: Patient remained stable. No increased work of breathing. No altered mental status. No focal motor deficits. Assessment and plan: Pharyngitis Dehydration ?Normal saline bolus, IV Rocephin, IV Decadron and IV Zofran - Discharged home - Discussed plan with patient. Answered any questions. - Evaluation and treatment of this problem were appropriate in the emergency setting. Lab Data 04/08/25 14:18 04/08/25 14:18 Laboratory Results WBC 7.98 10^3/uL (3.29-11.43) 04/08/25 14:18 RBC 4.54 10^6/uL (3.85-5.65) 04/08/25 14:18 Hgb 13.90 g/dL (11.27-16.99) 04/08/25 14:18 Hct 41.3 % (36-47) 04/08/25 14:18 MCV 91.0 fl (85-98) 04/08/25 14:18 MCH 30.6 pg (27-33) 04/08/25 14:18 MCHC 33.7 g/dL (30-55) 04/08/25 14:18 RDW 12.1 % (12.1-15.1) 04/08/25 14:18 Plt Count 192 10^3/cmm (157-399) 04/08/25 14:18 MPV 11.4 fL (7.4-10.4) H 04/08/25 14:18 Neut % (Auto) 88.1 % 04/08/25 14:18 Lymph % (Auto) 6.1 % 04/08/25 14:18 [place] % (Auto) 4.0 % 04/08/25 14:18 Eos % (Auto) 0.9 % 04/08/25 14:18 Baso % (Auto) 0.6 % 04/08/25 14:18 Neut # (Auto) 7.03 10^3/uL (1.8-7.7) 04/08/25 14:18 Lymph # (Auto) 0.5 10^3/uL (0.8-4.8) L 04/08/25 14:18 [place] # (Auto) 0.3 10^3/uL (0.2-0.9) 04/08/25 14:18 Eos # (Auto) 0.1 10^3/uL (0.0-0.8) 04/08/25 14:18 Baso # (Auto) 0.1 10^3/uL (0.0-0.1) 04/08/25 14:18 Nucleated RBC % (auto) 0 % 04/08/25 14:18 Nucleated RBCs # 0.0 /100WBC 04/08/25 14:18 Sodium 134 mmol/L (136-145) L 04/08/25 14:18 Potassium 3.8 mmol/L (3.5-5.1) 04/08/25 14:18 Chloride 100 mmol/L (98-107) 04/08/25 14:18 Carbon Dioxide 19 mmol/L (22-29) L 04/08/25 14:18 Anion Gap 18.8 (5-19) 04/08/25 14:18 BUN 9 mg/dL (6-20) 04/08/25 14:18 Creatinine 0.8 mg/dL (0.5-0.9) 04/08/25 14:18 GFR Calculation 86.0 mL/min (90-130) L 04/08/25 14:18 Glucose 112 mg/dL (65-115) 04/08/25 14:18 POC Glucose 100 mg/dL (70-110) 04/08/25 13:35 Calculated Osmolality 277 mOsm/kg (285-295) L 04/08/25 14:18 Calcium 9.8 mg/dL (8.5-10.5) 04/08/25 14:18 Total Bilirubin 0.8 mg/dL (0.15-1.2) 04/08/25 14:18 AST 20 U/L (0-32) 04/08/25 14:18 ALT 18 U/L (0-33) 04/08/25 14:18 Alkaline Phosphatase 83 U/L (35-105) 04/08/25 14:18 Total Protein 8.2 g/dL (6.6-8.7) 04/08/25 14:18 Albumin 4.2 g/dL (3.5-5.2) 04/08/25 14:18 Globulin 4.0 g/dL (1.3-4.6) 04/08/25 14:18 Monoscreen Negative (Negative) 04/08/25 14:18 Influenza A (PCR) Negative (Negative) 04/08/25 13:49 Influenza Type B (PCR) Negative (Negative) 04/08/25 13:49 RSV (PCR) Negative (Negative) 04/08/25 13:49 SARS-CoV-2 (PCR) Negative (Negative) 04/08/25 13:49 Group A Strep Rapid Negative (Negative) 04/08/25 13:49 No radiology studies performed this visit Discharge Plan Discharge Patient Disposition: Home Clinical Impression: Pharyngitis, Dehydration Condition: Stable Prescriptions: New azithromycin [Zithromax Z-Carlos Enrique] 250 mg tablet See Rx Instructions .ROUTE .COMPLEX Qty: 6 0RF Rx Instructions: For 250 mg dose pack: take 500 mg today (day 1), then 250 mg for 4 days (days 2-5) dexamethasone 6 mg tablet 6 mg PO DAILY 5 Days Qty: 5 0RF ondansetron 8 mg tablet,disintegrating 8 mg PO Q6H Qty: 14 0RF Rx Instructions: Take 1/2-1 tab every 6 hours as needed for nausea and vomiting No Action albuterol sulfate [Ventolin HFA] 90 mcg/actuation HFA aerosol inhaler 1 - 2 puff inhalation Q6H PRN (Reason: shortness of breath or wheezing) Qty: 8.5 0RF famotidine [Acid [employer] Reading Teacher (famotidine)] 20 mg tablet 20 mg PO BID 42 Days Qty: 84 0RF ondansetron HCl 8 mg tablet 8 mg PO Q8H PRN (Reason: nausea and/or vomiting) Qty: 30 1RF Discharge Orders: Discharge ED (Routine); Ordered 04/08/25 Ordered By: Geni Morales Referrals: Andrew Orosco MD [Primary Care Provider, Family Practice] Discharge Diet: Advance as tolerated Patient Instructions: Opioid Safety, Pain Management, Patient Portal & [place] Instructions Activity Restrictions/Additional Instructions: Thank you for choosing [facility] for your healthcare needs today. You have been screened and evaluated and felt safe for discharge. Health conditions do change or evolve sometimes and as such it is important that you follow up with your Primary Doctor to be re checked, 3-5 days is a general good time frame for follow up. You are always welcome to return to the ED for re assessment if your symptoms are worsening or you have new concerns Print Language: [place] Coding Level of Care Code ED Shot Peen Operator for [place]
[2025-04-08 14:24] LABS: Rapid Strep A Test Negative (Negative)
[2025-04-08 14:31] LABS: Hematocrit 41.3 % (36-47); Hemoglobin 13.90 g/dL (11.27-16.99); Mean Corpuscular HGB Conc 33.7 g/dL (30-55); Mean Corpuscular Hemoglobin 30.6 pg (27-33); Mean Corpuscular Volume 91.0 fl (85-98); Nucleated Red Blood Cells % 0 %; Platelet Count 192 10^3/cmm (157-399); Red Blood Count 4.54 10^6/uL (3.85-5.65); White Blood Count 7.98 10^3/uL (3.29-11.43)
[2025-04-08] MEDS: cefTRIAXone 1,000 mg SDV 1000 MG IVP (14:34)
[2025-04-08 14:39] LABS: Respiratory Syncytial Virus Ce NEGATIVE (Negative); SARS-CoV-2 PCR NEGATIVE (Negative)
[2025-04-08 14:45] LABS: Alanine Aminotransferase 18 U/L (0-33); Albumin Level 4.2 g/dL (3.5-5.2); Alkaline Phosphatase 83 U/L (35-105); Anion Gap 18.8 (5-19); Aspartate Amino Transferase 20 U/L (0-32); Blood Urea Nitrogen 9 mg/dL (6-20); Calcium 9.8 mg/dL (8.5-10.5); Carbon Dioxide 19 mmol/L (22-29); Chloride 100 mmol/L (98-107); Creatinine Clr Calc Pharmacy 127.3410; Globulin 4.0 g/dL (1.3-4.6); Glucose 112 mg/dL (65-115); Osmolality Calculated 277 mOsm/kg (285-295); Potassium 3.8 mmol/L (3.5-5.1); Sodium 134 mmol/L (136-145); Total Protein 8.2 g/dL (6.6-8.7)
[2025-04-08 15:18] VITALS: BP 98/59; PULSE 99; O2SAT 95
== END 2025-04-08 15:19 | disposition home or self-care (01) ==
PROVIDERS: Physician Assistant; Emergency Provider Emergency Medicine; PCP Family Medicine
DX: J02.9 Acute pharyngitis, unspecified (principal); E86.0 Dehydration; Z11.52 Encounter for screening for COVID-19
CPT/HCPCS: 36416; 80053; 82962; 85025; 86308; 87081; 87637; 87880; 96361; 96374; 96375; 99284; J0696; J1100; J7030